=== PATIENT | female | born 1990 | race Caucasian/White ===

== ENCOUNTER 2021-01-21 15:48 | Inpatient (IN) ==
[2021-01-21] MEDS ORDERED: OXYTOCIN 30 UNITS/500 ML BAG IV PRN ×2 (16:20→23:00)
[2021-01-21 16:56] LABS: Hematocrit (blood only) 37.4 % (37-47); Hemoglobin 13.1 g/dL (12.0-16.0); Mean Corpuscular Hemoglobin 31.9 pg (25-34); Mean Platelet Volume 8.9 fL (7.4-10.4); Platelet Count 350 K/uL (130-400); RDW Coefficient of Variation 12.7 % (11.5-14.5); RDW Standard Deviation 42.3 fL (36.4-46.3); Red Blood Count 4.11 M/uL (4.2-5.4)
--- NOTE | 2021-01-21 16:59 | History & Physical Report ---
Date of Service January 21, 2021 Assessment & Plan (1) Gestational hypertension without significant proteinuria during in third trimester, antepartum: Plan: 37 weeks 3 days first baby her cervix is long thick and closed her initial blood pressure is 140/80 she does meet the criteria for gestational hypertension she has no signs or lab evidence or proteinuria consistent with preeclampsia. The management for gestational hypertension is induction once 37 weeks are completed I have advised this to her and she agrees. She apparently had a group B strep swab done at a different office than ours she states that it was negative but I do not have results yet. We are making attempts to obtain the GBS status. I reviewed typical induction of labor strategies including cervical Brooks and Pitocin I discussed as well other options including Cervidil we discussed the risks and waiting on induction and that I do not recommend this and the patient agrees. We spoke at length about the patient's preferences she wishes to be somewhat mobile in the room she understands if we need to start Pitocin which is likely that we will need to continuously monitor her baby. I reassured the patient focuses take care of her and her baby and treat her problem gestational hypertension I discussed that we will need to treat her blood pressure if it elevates significantly more but at this stage it is not and that range I also do not think magnesium sulfate is appropriate as she does not have severe blood pressures. Position is palpated as vertex and I will insert a cervical Brooks patient does request to eat will allow this when she is comfortable we will start Pitocin Patient does accept cervical Brooks and paracervical Brooks placed under sterile conditions Brooks inserted through the cervix 30 cc into the bulb patient tolerated well Vx on U/S Admission and Anticipated Discharge Date Admission Date: January 21, 2021 History of Present Illness Primary Care Provider: NO PCP Patient with a diagnosis of gestational hypertension here for induction. The patient was at advised for induction apparently yesterday she reports no severe headache visual changes or right upper quadrant pain or pain baby is active she is 37+ weeks gestational age Allergies Allergy/AdvReac Type Severity Reaction Status Date / Time No Known Allergies Allergy Verified 01/21/21 14:26 Home Medications Medication Instructions Recorded Confirmed Type prenat.vits,noe,jiu-blwq-smitl 1 tab PO DAILY 07/08/20 01/21/21 History magnesium 250 mg tablet 250 mg PO DAILY 01/20/21 01/21/21 History Patient History Medical History (Updated 01/21/21 @ 17:35 by Gwen Rousseau RN) Irritable bowel syndrome Surgical History H/O removal of cyst lipoma on back Family History Father Diabetes Grandmother (Maternal) Colorectal cancer Breast cancer Social History Smoking Status: Never smoker Second Hand Exposure: No; Hx Alcohol Use: No Hx Substance Use: Yes Last Used Substance Other:: November 2020 Preferred Language: Turkmen Beliefs That Will Affect Care: None marital status: marital status details: Chayito (30) [phone] Current Living Situation: Spouse Current Living Situation Comment: lives with spouse, cat and dog. Spouse to change litter current occupational status: employed current occupation: post doctural scholar [employer] Other Information That Helps Us Care for You: No Feels Safe at Home: Yes Safety Concerns: Feels Safe At This Time Assistive Devices: None Physical Exam Constitutional: WD/WN, vitals as above Respiratory: normal respiratory effort, lungs clear to auscultation Cardiovascular: RRR, no murmur, no edema Genitourinary: OB Exam Abdomen: + vertex Manual OB Exam: + cervical dilation (0), + cervical effacement (0) and + station -2 Results & Data ([facility]) Vital Signs (Past 12 Hours) Vital Signs Pulse BP 01/21/21 16:00 100 H 146/80 H Code Status & VTE Plan VTE Prophylaxis Plan VTE Prophylaxis will be ordered: No Coding Level of Care Code None Diagnoses Gestational hypertension without significant proteinuria during in third trimester, antepartum O13.3 CPT Codes Misx Procedure Codes - 37760 Placement of cervical dilator: 41046 Placement of cervical dilator ([id number])
[2021-01-21 19:04] LABS: Amphetamines+Metham, Urine Neg (Neg); Barbiturates, Urine Neg (Neg); Benzodiazepine, Urine Neg (Neg); Cocaine, Urine Neg (Neg); MDMA (Ecstacy), Urine Neg (Neg); Methadone, Urine Neg (Neg); Opiate, Urine Neg (Neg); Phencyclidine, Urine Neg (Neg)
--- NOTE | 2021-01-21 21:35 | Labor Progress Brief Note ---
Date of Service January 21, 2021 Assessment & Plan (1) Gestational hypertension without significant proteinuria during in third trimester, antepartum: Plan: Patient experiencing some discomfort and crampiness with the Brooks but within normal expected ranges I have recommended starting Pitocin the patient agrees she is hoping to wait for her sister to come who was supposed to arrive in the next hour we will arrange for Pitocin to start at that time and we discussed side effects of Pitocin estimated weight likely 6 to 7 pounds Admission and Anticipated Discharge Date Admission Date: January 21, 2021 Results & Data ([facility]) Vital Signs (Past 12 Hours) Vital Signs Temp Pulse Resp BP 01/21/21 19:05 98.2 F 93 H 20 142/77 H 01/21/21 19:00 18 01/21/21 18:30 18 01/21/21 18:00 97.9 F 20 01/21/21 17:30 18 01/21/21 17:00 18 01/21/21 16:48 97.9 F 20 01/21/21 16:00 100 H 146/80 H Coding Level of Care Code None Diagnoses Gestational hypertension without significant proteinuria during in third trimester, antepartum O13.3
[2021-01-21] MEDS ORDERED: Nursing to Pharmacy Communication SCH (23:15)
[2021-01-22] MEDS ORDERED: OXYTOCIN 30 UNITS/500 ML BAG IV PRN (06:53)
[2021-01-22] MEDS: LACTATED RINGER'S 1,000 ML IV PRN ×4 (07:24→18:12)
[2021-01-22] MEDS ORDERED: Nursing to Pharmacy Communication SCH (07:45)
--- NOTE | 2021-01-22 11:50 | Labor Progress Brief Note ---
Date of Service January 22, 2021 Subjective Doing well. Ambulating in room. FHT Cat 1 [place] Q 2-3 min SVE 5/70/-3 Continue pitocin. Continue labor. Assessment & Plan Admission and Anticipated Discharge Date Admission Date: January 21, 2021 Results & Data ([facility]) Vital Signs (Past 12 Hours) Vital Signs Temp Pulse Resp BP 01/22/21 11:01 36.7 C 84 18 123/70 01/22/21 10:00 75 114/63 01/22/21 08:57 95 H 126/74 01/22/21 07:57 98 H 129/86 01/22/21 07:10 36.6 C 16 01/22/21 07:05 79 132/74 01/22/21 06:24 80 109/55 L 01/22/21 05:50 87 115/56 L 01/22/21 04:43 86 124/59 L 01/22/21 03:54 36.7 C 93 H 16 116/65 01/22/21 03:30 18 01/22/21 01:55 18 01/22/21 01:54 80 130/75 01/22/21 01:05 18 01/22/21 00:58 90 118/62 01/22/21 00:03 79 130/74 01/22/21 00:00 18 Coding Level of Care Code None
--- NOTE | 2021-01-22 15:39 | Labor Progress Brief Note ---
Date of Service January 22, 2021 Subjective Feeling ctx. FHT Cat 1 [place] Q 3 AROM clear fluid. SVE 5-6/70/-2 Continue pitocin. Assessment & Plan Admission and Anticipated Discharge Date Admission Date: January 21, 2021 Results & Data ([facility]) Vital Signs (Past 12 Hours) Vital Signs Temp Pulse Resp BP 01/22/21 15:08 36.7 C 83 18 123/71 01/22/21 14:33 80 126/64 01/22/21 13:04 79 127/72 01/22/21 12:11 93 H 138/77 01/22/21 11:01 36.7 C 84 18 123/70 01/22/21 10:00 75 114/63 01/22/21 08:57 95 H 126/74 01/22/21 07:57 98 H 129/86 01/22/21 07:10 36.6 C 16 01/22/21 07:05 79 132/74 01/22/21 06:24 80 109/55 L 01/22/21 05:50 87 115/56 L 01/22/21 04:43 86 124/59 L 01/22/21 03:54 36.7 C 93 H 16 116/65 Coding Level of Care Code None
[2021-01-22] MEDS ORDERED: ePHEDrine sulfate 50 MG/ML AMP ONE (17:29)
[2021-01-22] MEDS ORDERED: BUPIVACAINE 0.25% 30 ML VIAL ONE (17:29)
[2021-01-22] MEDS ORDERED: SODIUM CHLORIDE 0.9% INJ 10 ML VIAL ONE (17:29)
[2021-01-22] MEDS ORDERED: fentaNYL 2MCG/ML ROPIVACAINE 1.25MG/ML 100 ML BAG EPI ONE (17:30)
[2021-01-22] MEDS ORDERED: fentaNYL citrate 100 MCG/2 ML VIAL ONE (17:30)
[2021-01-22] MEDS ORDERED: ePHEDrine sulfate 50 MG/ML AMP IV PRN (17:43)
[2021-01-22] MEDS ORDERED: diphenhydrAMINE 50 MG/ML VIAL IV PRN (17:43)
[2021-01-22] MEDS ORDERED: NALBUPHINE HCL INJ 10 MG/ML AMP IV PRN (17:43)
[2021-01-22] MEDS ORDERED: NALOXONE HCL 1 MG in SODIUM CHLORIDE 0.9% 1000ML 1,000 ML IV PRN (17:43)
[2021-01-22] MEDS ORDERED: ONDANSETRON INJ 2 MG/ML 2 ML VIAL IV PRN (17:43)
[2021-01-22] MEDS ORDERED: fentaNYL 2MCG/ML ROPIVACAINE 1.25MG/ML 100 ML BAG EPI PRN (17:43)
[2021-01-22] MEDS ORDERED: NALOXONE HCL 0.4 MG/1 ML VIAL/CARP IV PRN (17:43)
--- NOTE | 2021-01-22 17:52 | Anesthesiology Consultation ---
Date of Service January 22, 2021 Assessment & Plan Chart Review Chart Review: Patient NOT seen in Pre Admission Testing and Acceptable Risk for Labor Epidural Consults Requested none ASA ASA2 Proposed Anesthesia Anesthesia Type: Labor Epidural and CSE Risk / Benefits Reviewed With: PT / POA / Parent / Guardian, Accepts Plan and Informed Consent Obtained History Height/Weight Height: 5 ft 10 in Weight: 105.687 kg Allergies Allergy/AdvReac Type Severity Reaction Status Date / Time latex Allergy Hives Verified 01/22/21 17:14 Medications Home Medications Medication Instructions Recorded Confirmed Last Taken prenat.vits,noe,dny-mhyn-lpigu 1 tab PO DAILY 07/08/20 01/21/21 01/19/21 magnesium 250 mg tablet 250 mg PO DAILY 01/20/21 01/21/21 01/19/21 Active Medications Generic Name Dose Route Start Last Admin Trade Name Freq PRN Reason Stop Dose Admin Lactated Ringer's 1,000 mls @ 125 mls/hr 01/21/21 16:20 01/22/21 17:24 Lr IV 01/23/21 16:19 999 mls/hr .Q8H PRN Infusion L&D Protocol Protocol Oxytocin 30 units in 500 mls @ 20 mls/hr 01/22/21 06:53 01/22/21 14:43 Pitocin IV 01/24/21 06:52 1.2 units/hr .Q24H PRN 20 mls/hr Labor Induction/Augmentation Titration Protocol 1.2 UNITS/HR NPO Date Last Intake of Fluids: 01/22/21 Time Last Intake of Fluids: 16:00 Date Last Intake of Solids: 01/22/21 Time Last Intake of Solids: 11:00 Past Medical History Medical History Irritable bowel syndrome Medical marijuana use Exercise / Class Metabolic Activity II 4-5 Yardwork/Stairs/Walk up hill Past Family History Family History Father Diabetes Grandmother (Maternal) Colorectal cancer Breast cancer Past Surgical History Surgical History H/O removal of cyst lipoma on back Past Anesthesia History No Hx of Anesthesia Complications and No Family Hx of Anesthesia Complications History of PONV No Hx of PONV and No Hx of Motion Sickness Social History Smoking Status: Never smoker Hx Alcohol Use: No Hx Substance Use: Yes substance use type: marijuana Last Used Substance Other:: November 2020 Review of Systems no chest pain or sob Physical Exam Vital Signs Last Vital Signs Temp 36.8 C 01/22/21 17:06 Pulse 93 H 01/22/21 17:49 Resp 24 01/22/21 17:06 BP 141/86 H 01/22/21 17:06 Pulse Ox 99 01/22/21 17:49 ENMT Mouth: no TMJ abnormality Thyromental Distance: > or= 3.5 Finger Breadths Mallampati Class: II Neck normal visual inspection Respiratory normal respiratory effort Auscultation: lungs clear to auscultation bilaterally Cardiovascular Rate/Rhythm: regular rate and regular rhythm Musculoskeletal Spine: normal cervical ROM Neurologic moves all extremities Psychiatric Orientation: alert and oriented x 3 Testing Laboratory Results 01/21/21 16:38
--- NOTE | 2021-01-22 21:40 | Labor Progress Brief Note ---
Date of Service January 22, 2021 Subjective Comfortable with epidural, feeling ctx. FHT Cat 1 [place] Q 2-4 SVE 8/100/+[address] [facility] to better trace ctx, however unable to get this to trace correctly either, therefore removed. Will continue to monitor via toco. Assessment & Plan Admission and Anticipated Discharge Date Admission Date: January 21, 2021 [facility] Vital Signs (Past 12 Hours) Vital Signs Temp Pulse Resp BP Pulse Ox 01/22/21 21:36 147/78 H 01/22/21 21:35 88 201/81 H 98 01/22/21 21:30 111 H 99 01/22/21 21:25 97 H 97 01/22/21 21:23 87 91 01/22/21 21:20 96 H 97 01/22/21 21:19 91 H 129/71 01/22/21 21:15 81 98 01/22/21 21:10 81 98 01/22/21 21:05 97 H 99 01/22/21 21:03 97 H 141/78 H 01/22/21 21:00 103 H 99 01/22/21 20:55 36.8 C 98 H 99 01/22/21 20:50 86 98 01/22/21 20:48 80 133/69 01/22/21 20:45 84 98 01/22/21 20:40 90 98 01/22/21 20:35 89 100 01/22/21 20:34 81 128/73 01/22/21 20:30 87 20 85 L 01/22/21 20:25 75 98 01/22/21 20:20 97 H 98 01/22/21 20:18 86 125/72 01/22/21 20:15 86 99 01/22/21 20:10 75 100 01/22/21 20:05 92 H 99 01/22/21 20:03 96 H 121/64 01/22/21 20:00 105 H 20 100 01/22/21 19:55 102 H 100 01/22/21 19:50 76 100 01/22/21 19:48 73 120/59 L 01/22/21 19:45 73 99 01/22/21 19:40 73 100 01/22/21 19:35 80 98 01/22/21 19:33 74 111/56 L 01/22/21 19:30 91 H 18 98 01/22/21 19:25 73 99 01/22/21 19:20 76 100 01/22/21 19:18 80 120/56 L 01/22/21 19:15 100 H 100 01/22/21 19:10 98 H 99 01/22/21 19:05 78 97 01/22/21 19:03 36.6 C 88 18 120/73 01/22/21 19:00 100 H 95 01/22/21 18:58 89 93 01/22/21 18:55 91 H 100 01/22/21 18:50 88 100 01/22/21 18:49 90 113/65 01/22/21 18:47 86 92 01/22/21 18:45 73 100 01/22/21 18:40 82 98 01/22/21 18:35 81 100 01/22/21 18:33 83 125/69 01/22/21 18:30 83 100 01/22/21 18:28 85 126/74 01/22/21 18:25 85 100 01/22/21 18:23 93 H 126/65 01/22/21 18:20 92 H 100 01/22/21 18:18 96 H 128/67 01/22/21 18:15 89 99 01/22/21 18:13 91 H 130/72 01/22/21 18:11 96 H 134/72 01/22/21 18:10 93 H 99 01/22/21 18:09 85 130/68 01/22/21 18:07 81 135/65 01/22/21 18:05 78 97 01/22/21 18:01 77 147/64 H 01/22/21 18:00 88 98 01/22/21 17:58 104 H 157/92 H 01/22/21 17:55 98 H 98 01/22/21 17:49 93 H 99 01/22/21 17:06 36.8 C 103 H 24 141/86 H 01/22/21 16:27 114 H 136/101 H 01/22/21 15:08 36.7 C 83 18 123/71 01/22/21 14:33 80 126/64 01/22/21 13:04 79 127/72 01/22/21 12:11 93 H 138/77 01/22/21 11:01 36.7 C 84 18 123/70 01/22/21 10:00 75 114/63 Coding Level of Care Code None
--- NOTE | 2021-01-22 23:10 | Labor Progress Brief Note ---
Date of Service January 22, 2021 Subjective Feeling increased pressure with ctx. FHT Cat 1 [place] Q 2-4 SVE rim/100/+2 Continue labor, anticipate . Assessment & Plan Admission and Anticipated Discharge Date Admission Date: January 21, 2021 Results & Data ([facility]) Vital Signs (Past 12 Hours) Vital Signs Temp Pulse Resp BP Pulse Ox 01/22/21 23:03 245 H 82 L 01/22/21 23:01 91 H 97 01/22/21 22:58 84 89 L 01/22/21 22:56 82 98 01/22/21 22:52 89 89 L 01/22/21 22:51 88 92 01/22/21 22:48 88 135/81 01/22/21 22:46 93 H 98 01/22/21 22:45 92 H 88 L 01/22/21 22:41 85 100 01/22/21 22:36 90 96 01/22/21 22:33 90 132/74 01/22/21 22:31 100 H 94 01/22/21 22:30 18 01/22/21 22:29 94 H 87 L 01/22/21 22:26 86 100 01/22/21 22:24 88 84 L 01/22/21 22:21 81 100 01/22/21 22:19 86 123/69 01/22/21 22:16 84 100 01/22/21 22:11 89 100 01/22/21 22:06 85 128/71 100 01/22/21 22:01 94 H 97 01/22/21 21:56 107 H 97 01/22/21 21:54 90 88 L 01/22/21 21:50 85 100 01/22/21 21:49 81 148/66 H 01/22/21 21:45 86 96 01/22/21 21:40 99 H 93 01/22/21 21:36 99 H 147/78 H 01/22/21 21:35 88 201/81 H 98 01/22/21 21:30 111 H 20 99 01/22/21 21:25 97 H 97 01/22/21 21:23 87 91 01/22/21 21:20 96 H 97 01/22/21 21:19 91 H 129/71 01/22/21 21:15 81 98 01/22/21 21:10 81 98 01/22/21 21:05 97 H 99 01/22/21 21:03 97 H 141/78 H 01/22/21 21:00 103 H 18 99 01/22/21 20:55 36.8 C 98 H 99 01/22/21 20:50 86 98 01/22/21 20:48 80 133/69 01/22/21 20:45 84 98 01/22/21 20:40 90 98 01/22/21 20:35 89 100 01/22/21 20:34 81 128/73 01/22/21 20:30 87 20 85 L 01/22/21 20:25 75 98 01/22/21 20:20 97 H 98 01/22/21 20:18 86 125/72 01/22/21 20:15 86 99 01/22/21 20:10 75 100 01/22/21 20:05 92 H 99 01/22/21 20:03 96 H 121/64 01/22/21 20:00 105 H 20 100 01/22/21 19:55 102 H 100 01/22/21 19:50 76 100 01/22/21 19:48 73 120/59 L 01/22/21 19:45 73 99 01/22/21 19:40 73 100 01/22/21 19:35 80 98 01/22/21 19:33 74 111/56 L 01/22/21 19:30 91 H 18 98 01/22/21 19:25 73 99 01/22/21 19:20 76 100 01/22/21 19:18 80 120/56 L 01/22/21 19:15 100 H 100 01/22/21 19:10 98 H 99 01/22/21 19:05 78 97 01/22/21 19:03 36.6 C 88 18 120/73 01/22/21 19:00 100 H 95 01/22/21 18:58 89 93 01/22/21 18:55 91 H 100 01/22/21 18:50 88 100 01/22/21 18:49 90 113/65 01/22/21 18:47 86 92 01/22/21 18:45 73 100 01/22/21 18:40 82 98 01/22/21 18:35 81 100 01/22/21 18:33 83 125/69 01/22/21 18:30 83 100 01/22/21 18:28 85 126/74 01/22/21 18:25 85 100 01/22/21 18:23 93 H 126/65 01/22/21 18:20 92 H 100 01/22/21 18:18 96 H 128/67 01/22/21 18:15 89 99 01/22/21 18:13 91 H 130/72 01/22/21 18:11 96 H 134/72 01/22/21 18:10 93 H 99 01/22/21 18:09 85 130/68 01/22/21 18:07 81 135/65 01/22/21 18:05 78 97 01/22/21 18:01 77 147/64 H 01/22/21 18:00 88 98 01/22/21 17:58 104 H 157/92 H 01/22/21 17:55 98 H 98 01/22/21 17:49 93 H 99 01/22/21 17:06 36.8 C 103 H 24 141/86 H 01/22/21 16:27 114 H 136/101 H 01/22/21 15:08 36.7 C 83 18 123/71 01/22/21 14:33 80 126/64 01/22/21 13:04 79 127/72 01/22/21 12:11 93 H 138/77 Coding Level of Care Code None
[2021-01-23] MEDS ORDERED: BUPIVACAINE 0.25% 30 ML VIAL ONE (02:04)
[2021-01-23] MEDS ORDERED: LIDOCAINE 1% LOCAL 20 ML VIAL ONE (02:05)
--- NOTE | 2021-01-23 02:34 | Delivery Summary ---
Vaginal Delivery Summary Date of Service January 23, 2021 Vaginal Delivery Summary and 1st Degree LAC Vaginal Delivery Summary: Pre-delivery diagnoses: 30yo @ 37 5/7, IOL for gHTN Post-delivery diagnoses: same Procedure: spontaneous vaginal delivery, repair of 1st degree perineal laceration Surgeon: Ena Card DO Complications: none Findings: Viable female . Apgars: 7/9 . Weight pending, please see nursery records Estimated blood loss: 300ml Description of delivery: The patient progressed to complete with epidural anesthesia. She then began to push. She spontaneously vaginally delivered a viable from the cephalic presentation. The head delivered in TRACEY position. The anterior shoulder delivered, followed by the posterior shoulder, followed by the body. Nuchal cord x 1, not easily reduced, therefore delivered through. The baby was placed on mother's abdomen and a spontaneous cry was heard. Delayed cord clamping was employed, and the cord was doubly clamped and cut. Cord blood was obtained. The placenta was delivered spontaneously intact with a 3-vessel cord. The uterus and vagina were swept of clots and debris. IV pitocin was given. The uterus became firm. The cervix, vagina, and perineum were inspected and 1st degree perineal laceration noted, 1% lidocaine infused for anesthetic, repaired in standard fashion with 3-0 vicryl. Excellent hemostasis was observed. The mother and baby are recovering in stable and good condition in the room. Sponge, needle and instrument counts were correct x 2. Ena Card DO [facility] Vaginal Delivery Charge Vaginal Delivery Codes: 54883 global code for the antepartum, delivery, and post- Delivery Type Details: and 1st Degree LAC
--- NOTE | 2021-01-23 02:59 | Anesthesia Procedure Note ---
Date of Service January 23, 2021 Anesthesia Post Epidural Note Vital Signs Vital Signs: Temp Pulse Resp BP Pulse Ox 37.5 C 104 H 20 118/58 L 96 01/23/21 01:02 01/23/21 02:45 01/23/21 01:45 01/23/21 02:45 01/23/21 02:16 Notes Mental Status: alert / awake / arousable and participated in evaluation Nausea / Vomiting: adequately controlled Pain: adequately controlled Airway Patency, RR, SpO2: stable & adequate BP & HR: stable & adequate Hydration State: stable & adequate Neuraxial Anesthesia: was administered and sensory block is resolving Anesthetic Complications: no major complications apparent and Pt Satisfied with anesthetic care Epidural: Removed without complications and With tip intact
[2021-01-23] MEDS ORDERED: oxyCODONE/ACETAMINOPHEN 5mg/325mg TAB PO PRN (03:32)
[2021-01-23] MEDS ORDERED: HYDROCORTISONE ACETATE 25 MG SUPP PR PRN (03:32)
[2021-01-23] MEDS ORDERED: OXYTOCIN 30 UNITS/500 ML BAG IV PRN (03:32)
[2021-01-23] MEDS ORDERED: DIPHTHERIA/TETANUS/PERTUSSIS 0.5 ML SYR/VIAL IM ONE (03:32)
[2021-01-23] MEDS ORDERED: SUPERCREAM 0.870% 15 GM JAR EXT PRN (03:32)
[2021-01-23] MEDS ORDERED: BENZOCAINE 20% AER SPR 82.5 GM CAN EXT PRN (03:32)
[2021-01-23] MEDS ORDERED: bisacodyL 10 MG SUPP PR PRN (03:32)
[2021-01-23] MEDS ORDERED: IBUPROFEN 600 MG TAB PO ONE (03:50)
[2021-01-23] MEDS: IBUPROFEN 600 MG TAB PO PRN ×5 (03:52→23:24)
[2021-01-23 06:01] LABS: Hematocrit (blood only) 30.8 % (37-47); Hemoglobin 10.8 g/dL (12.0-16.0); Mean Corpuscular Hemoglobin 31.8 pg (25-34); Mean Corpuscular Hgb Conc 35.1 g/dL (32-36); Mean Corpuscular Volume 90.6 fL (80-100); Mean Platelet Volume 8.7 fL (7.4-10.4); Platelet Count 251 K/uL (130-400); RDW Coefficient of Variation 12.7 % (11.5-14.5); RDW Standard Deviation 41.7 fL (36.4-46.3); White Blood Count 24.65 K/uL (4.8-10.8)
[2021-01-23] MEDS: ACETAMINOPHEN 325 MG TAB PO PRN ×3 (06:32→18:06)
[2021-01-23 07:01] LABS: Albumin Level 2.5 gm/dl (3.4-5.0); BUN Creatinine Ratio 10.4 (10-20); Calcium 8.9 mg/dl (8.5-10.1); Est GFR (African American) 127.2 ml/min; Est GFR (Non-African American) 109.7 ml/min; Potassium 3.4 mmol/L (3.5-5.1)
[2021-01-23 07:04] LABS: Albumin Globulin Ratio 0.7 (0.9-2); Bilirubin,Total 0.5 mg/dl (0.2-1); Globulin 3.6 gm/dl (2.5-4.0); Total Protein 6.1 gm/dl (6.4-8.2)
[2021-01-23] MEDS: PRENATAL VITAMIN 1 TAB PO SCH (07:57)
[2021-01-23] MEDS: DOCUSATE SODIUM 100 MG CAP PO SCH ×2 (07:57→20:05)
[2021-01-24] MEDS: ACETAMINOPHEN 325 MG TAB PO PRN (01:55)
[2021-01-24] MEDS: IBUPROFEN 600 MG TAB PO PRN ×3 (03:24→12:02)
[2021-01-24] MEDS: DOCUSATE SODIUM 100 MG CAP PO SCH (07:41)
[2021-01-24] MEDS: PRENATAL VITAMIN 1 TAB PO SCH (07:41)
--- NOTE | 2021-01-24 08:11 | Obstetrical Progress Note ---
Date of Service January 24, 2021 Assessment & Plan (1) state: Doing well, meeting all pp milestones. Desires d/c home today, stable for d/c (2) Gestational hypertension: BPs have been normotensive since delivery, will send message for BP check later this week Subjective Ambulation: ambulating normally Voiding: no voiding problems Passing Gas:: Yes Diet Tolerance:: regular diet Lochia:: Small Feeding Type:: breast feeding Pain well managed with medication Review of Systems Denies fevers, chills, n/v, [place], CP, SOB, RUQ/epigastric pain Physical Exam Constitutional WD/WN, vitals as above no acute distress Respiratory normal respiratory effort; no respiratory distress and no labored breathing Cardiovascular RRR, no murmur, no edema Gastrointestinal (Abdomen) Percussion/Palpation: abdomen soft; abdomen nontender fundus firm at umbilicus and NT Musculoskeletal BLE symmetric, nonerythematous, nontender Results & Data ([facility]) Vital Signs (Past 12 Hours) Vital Signs Temp Pulse Resp BP 01/23/21 23:20 97.9 F 88 18 94/58 L
[2021-01-24] MEDS ORDERED: bisacodyL 5 MG TABEC PO SCH (20:00)
== END 2021-01-24 12:10 | disposition home or self-care (01) | DRG 807 ==
LOC: OPB 15:48 → 4S1 15:50 → 4S2 01-23 04:56